=== PATIENT | female | born 1955 | race Caucasian/White ===

== ENCOUNTER → 2020-06-07 | Outpatient (CLI) | payer BC ==
[~2020-06-07] MED LIST: ASPI-630 PO
[2020-06-07] MEDS: GADOTERATE 7.5 MMOL/15ML VIAL. IVP ONE (13:33)
--- NOTE | 2020-06-07 14:00 | KCIC ---
MRI BRAIN WO+W Date: 06/07/2020 12:40 PM Indication: Reason: CVA 5 YRS AGO. RIGHT SIDED WEAKNESS / Spl. Instructions: / History: Residual ri ght sided weakness after CVA 2013, worsening. Comparison: None. Technique: Multiplanar multisequence MRI of the brain was performed with and without intravenous cont rast using the standard protocol. 16 cc Clariscan contrast was administered intravenously during the exam. Findings: No acute infarct. No acute or chronic hemorrhage. The ventricles are normal in size and configuration without hydrocephalus. Mild scattered FLAIR hyperintensities in the subcortical and periventricular deep white matter, a nonspecific finding, most commonly seen with chronic small vessel ischemic disea se. Moderate-sized area of left parietal encephalomalacia. The scalp and calvarium are normal. The pituitary and sella are normal. No Chiari malformation. The v isualized upper cervical spine is normal. The visualized orbits and globes are normal. Right maxillary sinus extension cyst. The mastoid air ce lls are clear. And normal left ICA flow void. IMPRESSION: 1. No acute infarct or hemorrhage. No mass or abnormal enhancement. 2. Moderate-sized area of left parietal encephalomalacia. Chronic right thalamic lacunar infarct. 3. Abnormal left ICA flow void, which may represent slow flow or occlusion. 3. Mild scattered FLAIR hyperintensities in the subcortical and periventricular deep white matter, a nonspecific finding, most commonly seen with chronic small vessel ischemic disease. Electronically signed by: Maxwell Adame MD (06/07/2020 1:58 PM) [id number]
== END ==
LOC: KCIC MRI 12:19
PROVIDERS: ATTEND Family Medicine
DX: I63.81 Other cerebral infarction due to occlusion or stenosis of small artery (principal); G81.91 Hemiplegia, unspecified affecting right dominant side; G93.89 Other specified disorders of brain
CPT/HCPCS: 70553; A9575